=== PATIENT | female | born 1965 | race Two or more races ===

== ENCOUNTER 2019-07-03 08:56 | Outpatient (CLI) | payer OTHER | END 2019-07-03 13:05 | disposition home or self-care (01) | LOC: SONOGRAMA 08:56 | DX: E04.2 Nontoxic multinodular goiter (principal) ==

== ENCOUNTER 2019-07-03 09:25 | Outpatient (CLI) | payer OTHER | END 2019-07-03 10:59 | disposition home or self-care (01) | LOC: SONOGRAMA 09:25 | DX: M06.4 Inflammatory polyarthropathy (principal); M19.041 Primary osteoarthritis, right hand; M19.042 Primary osteoarthritis, left hand ==